=== PATIENT | female | born 1945 | race Caucasian/White ===

== ENCOUNTER 2018-09-13 08:48 | Day surgery (SDC) | payer MEDICARE, OTHER ==
[~2018-09-13] VITALS: Ht 152.4 cm; Wt 55.6 kg
[~2018-09-13 08:48] MED LIST: BUPIVACAINE/PF 0.5% ONE; FOLI1CAP10 PO; FURO-92 PO; HEPARIN 5,000 UNITS/ML, 1ML ONE; METO50TA82 PO; PROTAMINE SULFATE 10 MG/ML, 5ML ONE; THROMBIN 5,000 UNIT VIAL TP ONE
[2018-09-13 09:37] VITALS: BP 197/71
[2018-09-13] MEDS ORDERED: SODIUM CHLORIDE 0.9% 1,000 ML IV SCH (09:39)
[2018-09-13] MEDS ORDERED: SEVE800T8 PO (09:42)
[2018-09-13] MEDS ORDERED: ASPI-496 PO (09:42)
[2018-09-13] MEDS ORDERED: HYDR-3342 PO (09:42)
[2018-09-13] MEDS ORDERED: AMLO-150 PO (09:42)
[2018-09-13] MEDS ORDERED: LIDOCAINE-MPF 1%, 2ML INFIL ONE (10:00)
[2018-09-13] MEDS ORDERED: FENTANYL PF 100 MCG/2ML IV PRN (10:00)
[2018-09-13] MEDS ORDERED: METOPROLOL 1 MG/ML, 5ML IV PRN (10:00)
[2018-09-13] MEDS ORDERED: PROMETHAZINE 25 MG/ML, 1ML IV PRN (10:00)
[2018-09-13] MEDS ORDERED: MEPERIDINE/PF 25MG/0.5ML IVPush PRN (10:00)
[2018-09-13] MEDS ORDERED: OXYcodone 5 MG/5 ML ORAL.SOL UDC PO PRN (10:00)
[2018-09-13] MEDS ORDERED: HYDROmorphone 2 MG/ML, 1ML IVPush PRN (10:00)
[2018-09-13] MEDS ORDERED: HALOPERIDOL 5 MG/ML IV PRN (10:00)
[2018-09-13] MEDS ORDERED: PROCHLORPERAZINE 5 MG/ML, 2ML IV PRN (10:00)
[2018-09-13] MEDS ORDERED: hydrALAzine 20 MG/ML, 1ML IV PRN (10:00)
[2018-09-13] MEDS ORDERED: DIPHENHYDRAMINE 50 MG/ML, 1ML IVPush PRN (10:00)
[2018-09-13] MEDS ORDERED: LABETALOL 5MG/ML, 20ML IV PRN (10:00)
[2018-09-13] MEDS ORDERED: HEPARIN 1,000 UNITS/ML, 10ML ONE (10:18)
[2018-09-13] MEDS ORDERED: FENTANYL PF 100 MCG/2ML ONE ×2 (10:37→12:32)
[2018-09-13 11:21] VITALS: BP 182/70
[2018-09-13] MEDS ORDERED: THROMBIN 20,000 UNIT VIAL TP ONE (11:21)
[2018-09-13] MEDS ORDERED: ONDANSETRON 2MG/ML, 2ML ONE (11:25)
[2018-09-13] MEDS ORDERED: DEXAMETHASONE 4 MG/ML, 1ML ONE (11:25)
[2018-09-13] MEDS ORDERED: CEFAZOLIN 1,000 MG ONE (11:25)
[2018-09-13] MEDS ORDERED: PROPOFOL 10 MG/ML, 20ML ONE (11:25)
[2018-09-13] MEDS ORDERED: OXYcodone 5 MG/5 ML ORAL.SOL UDC ONE (12:32)
== END 2018-09-13 15:55 | disposition home or self-care (01) ==
LOC: OUT 08:48
PROVIDERS: ATTEND Surgery Vascular Surgery
DX: T82.590A Other mechanical complication of surgically created arteriovenous fistula, initial encounter (principal); E11.22 Type 2 diabetes mellitus with diabetic chronic kidney disease; I12.0 Hypertensive chronic kidney disease with stage 5 chronic kidney disease or end stage renal disease; N18.6 End stage renal disease; Z79.84 Long term (current) use of oral hypoglycemic drugs; Z98.890 Other specified postprocedural states; Y83.8 Other surgical procedures as the cause of abnormal reaction of the patient, or of later complication, without mention of misadventure at the time of the procedure; Y92.89 Other specified places as the place of occurrence of the external cause
CPT/HCPCS: 36415; 36832; 80047; 93005; J0690; J1100; J1644; J2405; J2704; J3010; J2720; J3490

== ENCOUNTER 2018-09-18 08:55 | Observation (INO) | payer MEDICARE, OTHER ==
[~2018-09-18] VITALS: Ht 152.4 cm; Wt 57.0 kg
[~2018-09-18 08:55] MED LIST changes: +AMLO-150 PO; +ASPI-496 PO; -BUPIVACAINE/PF 0.5% ONE; -HEPARIN 5,000 UNITS/ML, 1ML ONE; +HYDR-3342 PO; -PROTAMINE SULFATE 10 MG/ML, 5ML ONE; +SEVE800T8 PO; -THROMBIN 5,000 UNIT VIAL TP ONE
--- NOTE | 2018-09-18 09:31 | NUR ---
Assumed care of patient. Patient had surgery on fistula on Thursday and went to dialysis this AM. Patient states that fistula site was too painful during dialysis and she was advised to go to ED. C/O intermittent shooting fistula pain. Patient has not had full dialysis treatment since last Thursday. Placed on NIBP, pulse ox and telemetry monitor. Will continue to monitor.
--- NOTE | 2018-09-18 09:39 | NUR ---
Report to JOE Etienne.
[2018-09-18 10:13] LABS: BASOPHILS # (AUTO) 0.03 x10^3/uL (0-0.1); BASOPHILS % (AUTO) 1 % (0-1); EOSINOPHILS # (AUTO) 0.19 x10^3/uL (0-0.4); EOSINOPHILS % (AUTO) 3 % (1-7); LYMPHOCYTES # (AUTO) 1.02 x10^3/uL (1-3.4); LYMPHOCYTES % (AUTO) 15 % (22-44); MD NO; MEAN CORPUSCULAR HGB CONC 32.8 g/dL (32.4-35.8); MEAN CORPUSCULAR VOLUME 97.7 fL (80-100); MEAN PLATELET VOLUME 8.8 fL (7.4-10.4); MONOCYTES # (AUTO) 0.41 x10^3/uL (0.2-0.8); MONOCYTES % (AUTO) 6 % (2-9); NEUTROPHILS % (AUTO) 76 % (42-75); PLATELET COUNT 126 x10^3/uL (130-400); RED BLOOD COUNT 3.57 x10^6/uL (3.82-5.3); RED CELL DISTRIBUTION WIDTH 13.8 % (9.6-15.2)
[2018-09-18 10:26] LABS: ALBUMIN 3.8 g/dL (3.4-5.0)
[2018-09-18 10:29] LABS: ALANINE AMINOTRANSFERASE 7 U/L (12-78); ALKALINE PHOSPHATASE 90 U/L (45-117); BILIRUBIN,TOTAL 0.7 mg/dL (0.2-1.0); TOTAL PROTEIN 7.4 g/dL (6.4-8.2)
[2018-09-18 10:35] LABS: ANION GAP 14 mmol/L (5-15); CHLORIDE 104 mmol/L (98-107)
[2018-09-18] MEDS ORDERED: DEXTROSE 50%, 50ML SYRINGE IVPush PRN (11:00)
[2018-09-18] MEDS ORDERED: GLUCAGON 1 MG IM PRN (11:00)
[2018-09-18] MEDS ORDERED: morphine SULFATE 10 MG/ML, 1ML IVPush PRN (11:00)
[2018-09-18] MEDS ORDERED: LABETALOL 5MG/ML, 20ML IVPush PRN ×2 (11:00→15:30)
[2018-09-18] MEDS ORDERED: ONDANSETRON 2MG/ML, 2ML IVPush PRN (11:00)
[2018-09-18] MEDS ORDERED: hydrALAzine 20 MG/ML, 1ML IVPush PRN (11:00)
[2018-09-18] MEDS ORDERED: DEXTROSE 4 GM TAB.CHEW PO PRN (11:00)
--- NOTE | 2018-09-18 11:04 | NUR ---
spoke to ir.consent at bedside. iv access obtained. pt resting comfortably in bed at this time. family at bedside.
--- NOTE | 2018-09-18 11:20 | NUR ---
pt now on hospital bed. bear hugger in use for pt comfort. family at bedside. no wants or needs expressed at this time. pt still npo as of 8 am this morning.
--- NOTE | 2018-09-18 11:43 | NUR ---
pt to ir now. consents sent with tech.
[2018-09-18] MEDS ORDERED: LIDOCAINE 1%, 20ML ONE (11:44)
[2018-09-18] MEDS ORDERED: NALOXONE 1 MG/ML, 2ML ONE (11:48)
[2018-09-18] MEDS ORDERED: MIDAZOLAM 1 MG/ML, 5ML ONE (11:48)
[2018-09-18] MEDS ORDERED: FLUMAZENIL 0.1 MG/1 ML, 5ML ONE (11:48)
[2018-09-18] MEDS ORDERED: FENTANYL PF 100 MCG/2ML ONE (11:48)
[2018-09-18] MEDS ORDERED: LIDOCAINE-MPF 1%, 5ML ONE (11:50)
[2018-09-18] MEDS: INSULIN LISPRO 100 UNITS/ML, PEN SQ-INSULIN SCH ×3 (13:27→21:02)
[2018-09-18] MEDS: SODIUM CHLORIDE FLUSH 10ML SYR IVF SCH ×2 (13:28→21:06)
[2018-09-18 13:35] VITALS: BP 121/81
[2018-09-18] MEDS: SEVELAMER CARBONATE 800MG TAB PO SCH ×2 (13:53→18:14)
[2018-09-18 15:18] VITALS: BP 181/72
[2018-09-18] MEDS: OXYcodone IR 5MG TABLET PO PRN ×2 (15:27→19:55)
[2018-09-18] MEDS ORDERED: LABETALOL 5 MG/ML SYRINGE IVPush PRN (15:30)
[2018-09-18 15:41] VITALS: BP 175/63
[2018-09-18 16:46] VITALS: BP 190/67
[2018-09-18 20:50] VITALS: BP 195/64
[2018-09-18] MEDS ORDERED: AMLODIPINE 5 MG TABLET PO SCH (21:00)
[2018-09-18 21:50] VITALS: BP 164/62
[2018-09-19 03:14] VITALS: BP 168/66
[2018-09-19] MEDS: OXYcodone IR 5MG TABLET PO PRN ×2 (03:20→12:35)
[2018-09-19 03:57] VITALS: BP 152/61
[2018-09-19 06:01] LABS: ANION GAP 10 mmol/L (5-15); CALCIUM 8.2 mg/dL (8.5-10.1); CHLORIDE 100 mmol/L (98-107); CREATININE 6.63 mg/dL (0.55-1.02)
[2018-09-19 06:30] LABS: MEAN CORPUSCULAR HEMOGLOBIN 32.5 pg (27.0-34.8); MEAN CORPUSCULAR HGB CONC 33.4 g/dL (32.4-35.8); MEAN CORPUSCULAR VOLUME 97.4 fL (80-100); MEAN PLATELET VOLUME 8.2 fL (7.4-10.4); PLATELET COUNT 103 x10^3/uL (130-400); RED BLOOD COUNT 3.02 x10^6/uL (3.82-5.3); RED CELL DISTRIBUTION WIDTH 13.9 % (9.6-15.2)
[2018-09-19] MEDS: INSULIN LISPRO 100 UNITS/ML, PEN SQ-INSULIN SCH ×2 (07:00→11:00)
[2018-09-19 07:49] LABS: BASOPHILS # (AUTO) 0.03 x10^3/uL (0-0.1); BASOPHILS % (AUTO) 1 % (0-1); EOSINOPHILS # (AUTO) 0.18 x10^3/uL (0-0.4); EOSINOPHILS % (AUTO) 3 % (1-7); LYMPHOCYTES # (AUTO) 0.93 x10^3/uL (1-3.4); LYMPHOCYTES % (AUTO) 16 % (22-44); MD SCAN; MONOCYTES # (AUTO) 0.57 x10^3/uL (0.2-0.8); MONOCYTES % (AUTO) 10 % (2-9); NEUTROPHILS # (AUTO) 4.25 x10^3/uL (1.8-6.8); NEUTROPHILS % (AUTO) 72 % (42-75)
[2018-09-19 08:17] VITALS: BP 164/64
[2018-09-19] MEDS: SODIUM CHLORIDE FLUSH 10ML SYR IVF SCH (09:00)
[2018-09-19] MEDS ORDERED: ASPIRIN 81 MG TABLET EC PO SCH (09:00)
[2018-09-19] MEDS: SEVELAMER CARBONATE 800MG TAB PO SCH ×2 (09:00→13:24)
[2018-09-19 14:16] VITALS: BP 138/63
== END 2018-09-19 18:29 | disposition home or self-care (01) ==
LOC: ED 09:54 → EDIP 09:55 → INTOOBSV 09:55 → ED 10:01 → 4EST 13:16
PROVIDERS: ADMIT Internal Medicine; ATTEND Internal Medicine
DX: I12.0 Hypertensive chronic kidney disease with stage 5 chronic kidney disease or end stage renal disease (principal); N18.6 End stage renal disease; D63.1 Anemia in chronic kidney disease; E11.22 Type 2 diabetes mellitus with diabetic chronic kidney disease; E87.5 Hyperkalemia; E87.70 Fluid overload, unspecified; N25.0 Renal osteodystrophy; T82.510A Breakdown (mechanical) of surgically created arteriovenous fistula, initial encounter; Z99.2 Dependence on renal dialysis
CPT/HCPCS: 36415; 36558; 71045; 77001; 80048; 80053; 82962; 85025; 86704; 86706; 86708; 86803; 87340; 93005; 96374; 96375; 99284; C1750; G0378; J1642; J2405; J3010; J3490; J2250; J2310

== ENCOUNTER 2018-09-21 00:51 | Inpatient (IN) | payer MEDICARE, OTHER ==
[~2018-09-21] VITALS: Ht 152.4 cm; Wt 54.3 kg
--- NOTE | 2018-09-21 01:17 | NUR ---
PT HAD A DIALYSIS PORT PLACED ON THURSDAY "TONIGHT SHE PULLED IT OUT AND SHE IS BLEEDING." PER TRIAGE NOTE BP WAS ELEVATED UPTO 190/63 APPLIED OXYGEN VIA NC
--- NOTE | 2018-09-21 01:34 | NUR ---
PT ASSISTED TO RR W/ ABBIE LUCAS. TO RECHECK PT.
[2018-09-21] MEDS ORDERED: HYDROcodone/APAP 5/325 TABLET ONE (01:44)
--- NOTE | 2018-09-21 01:58 | NUR ---
PROVIDED ICE PACK FOR CENTRAL LINE. MEDICATED PER AUG.
[2018-09-21] MEDS ORDERED: HYDROcodone/APAP 5/325 TABLET PO ONE (02:00)
--- NOTE | 2018-09-21 02:25 | NUR ---
ICE PACK STILL IN PLACE. FAMILY AT BEDSIDE. NO IMMEDIATE NEEDS. AWAITING RECHECK AT 0300.
--- NOTE | 2018-09-21 02:37 | NUR ---
PT STILL OOZING FROM CENTRAL LINE. MD NOTIFIED. TOPICAL COAGS ORDERED BY . THIS RN TO REQUEST FROM RX.
[2018-09-21] MEDS ORDERED: MICROFIBRILLAR COLLAGEN 1 GM TP ONE ×2 (02:39→03:00)
--- NOTE | 2018-09-21 03:30 | NUR ---
INTERVENTIONAL RADIOLOGIST CALLED.
[2018-09-21 03:43] LABS: BASOPHILS # (AUTO) 0.03 x10^3/uL (0-0.1); BASOPHILS % (AUTO) 0 % (0-1); EOSINOPHILS # (AUTO) 0.24 x10^3/uL (0-0.4); EOSINOPHILS % (AUTO) 3 % (1-7); LYMPHOCYTES # (AUTO) 0.87 x10^3/uL (1-3.4); LYMPHOCYTES % (AUTO) 12 % (22-44); MD NO; MEAN CORPUSCULAR HEMOGLOBIN 32.7 pg (27.0-34.8); MEAN CORPUSCULAR HGB CONC 33.2 g/dL (32.4-35.8); MEAN CORPUSCULAR VOLUME 98.6 fL (80-100); MEAN PLATELET VOLUME 8.1 fL (7.4-10.4); MONOCYTES % (AUTO) 7 % (2-9); NEUTROPHILS % (AUTO) 77 % (42-75); PLATELET COUNT 101 x10^3/uL (130-400); RED BLOOD COUNT 3.35 x10^6/uL (3.82-5.3); RED CELL DISTRIBUTION WIDTH 14.4 % (9.6-15.2)
--- NOTE | 2018-09-21 03:47 | NUR ---
PT STILL OOZING BLOOD OUT OF SITE. AT BEDSIDE.
[2018-09-21] MEDS ORDERED: LIDOCAINE-MPF 1%, 5ML ONE (03:49)
[2018-09-21 03:50] LABS: INTERNATIONAL NORMALIZED RATIO 1.04 (0.93-1.1); PROTHROMBIN TIME 10.9 Seconds (9.6-11.5)
[2018-09-21 03:51] LABS: ANION GAP 8 mmol/L (5-15); CALCIUM 8.8 mg/dL (8.5-10.1); CHLORIDE 99 mmol/L (98-107); CREATININE 6.94 mg/dL (0.55-1.02)
--- NOTE | 2018-09-21 03:53 | NUR ---
MD AT BEDSIDE FOR SUTURES AND 3RD DRESSING CHANGE.
[2018-09-21] MEDS ORDERED: LIDOCAINE-MPF 1%, 5ML INFIL ONE (04:00)
--- NOTE | 2018-09-21 05:08 | NUR ---
HOSPITAL BED ORDERED AT THIS TIME.
[2018-09-21] MEDS ORDERED: ACETAMINOPHEN 325 MG TABLET PO PRN (05:30)
[2018-09-21] MEDS ORDERED: BISACODYL 10 MG SUPP PR PRN (05:30)
[2018-09-21] MEDS ORDERED: DOCUSATE 100 MG CAPSULE PO PRN (05:30)
[2018-09-21] MEDS ORDERED: ONDANSETRON 2MG/ML, 2ML IVPush PRN (05:30)
[2018-09-21] MEDS ORDERED: LABETALOL 5MG/ML, 20ML IVPush PRN (05:30)
[2018-09-21] MEDS ORDERED: LABETALOL 20 MG/4 ML IVPush PRN (05:30)
[2018-09-21] MEDS ORDERED: hydrALAzine 20 MG/ML, 1ML IVPush PRN (05:30)
[2018-09-21] MEDS ORDERED: POLYETHYLENE GLYCOL 17 GM PACKET PO PRN (05:30)
[2018-09-21] MEDS ORDERED: HYDROcodone/APAP 5/325 TABLET PO PRN (05:30)
[2018-09-21] MEDS ORDERED: ONDANSETRON ODT 4 MG PO PRN (05:30)
[2018-09-21] MEDS ORDERED: PROMETHAZINE 25 MG/ML, 1ML IM PRN (05:30)
[2018-09-21] MEDS ORDERED: morphine SULFATE 10 MG/ML, 1ML IVPush PRN (05:30)
[2018-09-21 05:45] LABS: FREE T4 (FREE THYROXINE) 1.63 ng/dL (0.76-1.46); THYROID STIMULATING HORMONE 0.429 mIU/L (0.358-3.740)
--- NOTE | 2018-09-21 05:47 | NUR ---
PT CLEANED AND PLACED ON FRESH LINENS. BEAR HUGGER IN PLACE. NO IMMEDIATE NEEDS FROM PT OR FAMILY.
[2018-09-21 06:15] LABS: HEMOGLOBIN A1C 6.7 % (4.2-6.3)
--- NOTE | 2018-09-21 06:22 | NUR ---
TRANSFERRED TO HOSPITAL BED AT THIS TIME.
--- NOTE | 2018-09-21 07:00 | NUR ---
REC BS REPORT ASSUMED CARE
[2018-09-21] MEDS: SEVELAMER CARBONATE 800MG TAB PO SCH ×2 (07:51→13:44)
--- NOTE | 2018-09-21 09:31 | NUR ---
ASSUMED CARE. NO BLEEDING NOTED AT DIALYSIS PORT RIGHT CHEST WALL.
--- NOTE | 2018-09-21 11:00 | NUR ---
AMBULATED TO BATHROOM WITH 'S ASSISTANCE. STEADY GAIT
--- NOTE | 2018-09-21 12:06 | NUR ---
ASSISTED PT WITH AMBULATION DOWN KENNEY. PT HOLDS ONTO RAILS ON WALL AND ONTO RN. PT STATES SHE FEELS A LITTLE LIGHTHEADED WHEN SHE WALKS. ORDER RECEIVED FROM DR. ODONNELL VIA TELEPHONE THAT PT MAY HAVE A RENAL TRAY.
--- NOTE | 2018-09-21 12:08 | NUR ---
REPORT TO SIMONE DIAZ
[2018-09-21 12:58] VITALS: BP 175/77
[2018-09-21] MEDS ORDERED: HYDR-3342 PO (15:00)
[2018-09-21] MEDS ORDERED: AMLO10TA8 PO (15:00)
[2018-09-21] MEDS ORDERED: CLON0.1T22 PO (15:01)
[2018-09-21] MEDS ORDERED: AMLODIPINE 10 MG TAB PO SCH (21:00)
[2018-09-21] MEDS ORDERED: AMLODIPINE 5 MG TABLET PO SCH (21:00)
[2018-09-22] MEDS ORDERED: ASPIRIN 81 MG TABLET EC PO SCH (09:00)
== END 2018-09-21 16:46 | disposition home or self-care (01) | DRG 987 ==
LOC: ED 02:44 → EDIP 04:20 → 4EST 12:36 → DCLOUNGE 16:24
PROVIDERS: ADMIT Internal Medicine; ATTEND Internal Medicine
PROC: 0JQ60ZZ Repair Chest Subcutaneous Tissue and Fascia, Open Approach (ICD-10-PCS; principal; 2018-09-21)
DX: T82.838A Hemorrhage due to vascular prosthetic devices, implants and grafts, initial encounter (principal); N18.6 End stage renal disease; T82.510A Breakdown (mechanical) of surgically created arteriovenous fistula, initial encounter; I12.0 Hypertensive chronic kidney disease with stage 5 chronic kidney disease or end stage renal disease; D64.9 Anemia, unspecified; D69.6 Thrombocytopenia, unspecified; E11.22 Type 2 diabetes mellitus with diabetic chronic kidney disease; L29.9 Pruritus, unspecified; Y71.2 Prosthetic and other implants, materials and accessory cardiovascular devices associated with adverse incidents; Y84.1 Kidney dialysis as the cause of abnormal reaction of the patient, or of later complication, without mention of misadventure at the time of the procedure; Z99.2 Dependence on renal dialysis
CPT/HCPCS: 36415; 80048; 83036; 83735; 84439; 84443; 85025; 85610; 85730; J1642

== ENCOUNTER → 2018-10-08 | Outpatient (CLI) | payer MEDICARE, OTHER ==
[~2018-10-08] MED LIST changes: +AMLO10TA8 PO; +CLON0.1T22 PO
== END | disposition home or self-care (01) ==
LOC: RAD 14:06
PROVIDERS: ATTEND Internal Medicine Nephrology
DX: L02.91 Cutaneous abscess, unspecified (principal); N18.6 End stage renal disease

== ENCOUNTER → 2018-11-12 | Outpatient (CLI) | payer MEDICARE, OTHER | END | disposition home or self-care (01) | LOC: RAD 10:50 | PROVIDERS: ATTEND Family Medicine | DX: I51.7 Cardiomegaly (principal); K59.09 Other constipation; J20.9 Acute bronchitis, unspecified | CPT/HCPCS: 71046; 74022 ==